=== PATIENT | male | born 1960 | race Caucasian/White ===

== ENCOUNTER 2025-01-27 10:03 | Day surgery (SDC) | payer MEDICARE ==
[~2025-01-27 10:03] MED LIST: Lactated Ringers 1,000 ML IV SCH; Sodium Chloride 0.9% 10 ML Syringe FLUSH PRN; Sodium Chloride 0.9% 10 ML Syringe FLUSH SCH
[2025-01-27] MEDS ORDERED: Propofol 200 MG/20 ML SDV ONE ×2 (11:41→13:34)
[2025-01-27] MEDS ORDERED: fentaNYL 100 MCG/2 ML SDV ONE (11:43)
[2025-01-27] MEDS ORDERED: ceFAZolin 2 GM Vial ONE (11:46)
[2025-01-27] MEDS: Bupivacaine 0.25% 10 ML SDV ONE (13:31)
[2025-01-27 14:34] VITALS: BP 176/92; PULSE 74
== END 2025-01-27 14:50 | disposition home or self-care (01) ==
LOC: JD.SDS 10:03
PROVIDERS: ATTEND Orthopaedic Surgery
DX: Z18.9 Retained foreign body fragments, unspecified material (principal); I10 Essential (primary) hypertension; E78.00 Pure hypercholesterolemia, unspecified; J45.909 Unspecified asthma, uncomplicated; K21.9 Gastro-esophageal reflux disease without esophagitis; E11.9 Type 2 diabetes mellitus without complications; Z79.84 Long term (current) use of oral hypoglycemic drugs; Z79.4 Long term (current) use of insulin; Z79.899 Other long term (current) drug therapy
CPT/HCPCS: 82947; J0665; J0690; J2704; J3010; J7120